=== PATIENT | female | born 1975 | race Caucasian/White ===

== ENCOUNTER 2022-09-14 13:22 | Emergency (ER) | payer BC ==
[~2022-09-14] VITALS: Ht 162.6 cm; Wt 84.4 kg
[2022-09-14 13:22] VITALS: BP_SYST 150
[2022-09-14] MEDS ORDERED: metroNIDAZOLE 500 MG TABLET PO ONE (14:45)
[2022-09-14] MEDS ORDERED: cefTRIAXone 1 GM VIAL IM ONE (14:45)
[2022-09-14] MEDS ORDERED: DOXYCYCLINE HYCLATE 100 MG CAPSULE PO ONE (14:45)
[2022-09-14] MEDS ORDERED: METR-154 PO (14:52)
[2022-09-14] MEDS ORDERED: DOXY100T2 PO (14:52)
[2022-09-14] MEDS ORDERED: cefTRIAXone 1 GM in LIDOCAINE 1%, 20 ML MDV 2.1 ML IM ONE (15:30)
[2022-09-14] MEDS ORDERED: LIDOCAINE 1%, 20 ML MDV 20 ML ONE (15:32)
[2022-09-14 15:35] LABS: BILIRUBIN,URINE NEGATIVE (NEGATIVE); BLOOD, URINE NEGATIVE (NEGATIVE); CLARITY/URINE CLEAR (CLEAR); COLOR,URINE YELLOW (YELLOW); GLUCOSE,URINE NEGATIVE (NEGATIVE); KETONES,URINE NEGATIVE (NEGATIVE); LEUKOCYTE ESTERASE ,URINE TRACE (NEGATIVE); NITRITE, URINE NEGATIVE (NEGATIVE); PH,URINE 7.5 (5.0-8.0); PROTEIN URINE NEGATIVE (NEGATIVE); UROBILINOGEN,URINE 0.2 (0.2-1.0)
[2022-09-14 16:05] LABS: RBC,URINE 0-3 /HPF (0-3)
[2022-09-14 16:06] LABS: BACTERIA,URINE RARE /HPF (None Seen)
[2022-09-14 17:46] VITALS: BP_SYST 129
== END 2022-09-14 16:22 | disposition home or self-care (01) ==
LOC: SED 13:22
DX: N76.0 Acute vaginitis (principal); Z11.3 Encounter for screening for infections with a predominantly sexual mode of transmission; N93.9 Abnormal uterine and vaginal bleeding, unspecified; Z79.899 Other long term (current) drug therapy
CPT/HCPCS: 99283; 81000; 87086; 36415; 96372; 87491; J0696; J2001

== ENCOUNTER 2022-09-21 21:00 | Emergency (ER) | payer BC ==
[~2022-09-21] VITALS: Ht 162.6 cm; Wt 83.9 kg
[~2022-09-21 21:00] MED LIST: DOXY100T2 PO; METR-154 PO
[2022-09-21 21:07] VITALS: BP_SYST 138
[2022-09-21] MEDS ORDERED: HYDROCHLOROTHIAZIDE 25 MG TABLET (HCTZ) PO ONE (22:15)
[2022-09-21] MEDS ORDERED: cloNIDine HCL 0.1 MG TABLET PO ONE (22:15)
[2022-09-21] MEDS ORDERED: LISI20TA30 PO (22:34)
[2022-09-21 23:35] VITALS: BP_SYST 144
== END 2022-09-21 23:35 | disposition home or self-care (01) ==
LOC: SED 21:00
DX: I10 Essential (primary) hypertension (principal); Z76.0 Encounter for issue of repeat prescription; Z79.899 Other long term (current) drug therapy
CPT/HCPCS: 99283